=== PATIENT | male | born 1990 | race Caucasian/White ===

== ENCOUNTER 2022-01-23 15:52 | Observation (INO) ==
[2022-01-23] MEDS ORDERED: Ringers Solution, Lactated 1,000 ML IVC ONE ×2 (16:15→18:06)
[2022-01-23 16:23] LABS: Basophils # 0.1 K/mcL (0.0-0.2); Basophils % 0.4 %; Eosinophils # 0.2 K/mcL (0.0-0.6); Eosinophils % 1.5 %; Hematocrit 44.4 % (37.5-50.1); Hemoglobin 15.1 g/dL (12.9-16.9); Immature Granulocytes % 0.8 % (0-4); Lymphocytes # 3.9 K/mcL (0.6-4.6); Mean Corpuscular Hemoglobin 30.8 pg (28.0-33.3); Mean Corpuscular Volume 90.6 fL (83.0-100.0); Monocytes # 0.9 K/mcL (0.0-1.3); Monocytes % 5.5 %; Neutrophils # 10.4 K/mcL (1.6-8.9); Platelet Count 256 K/mcL (140-400); Red Cell Distribution Width 12.8 % (11.5-14.5); Segmented Neutrophils % 66.8 %; White Blood Count 15.6 K/mcL (4.3-11.1)
[2022-01-23 16:50] LABS: Alanine Aminotransferase 33 Units/L (7-52); Albumin 4.9 g/dL (3.5-5.7); Alkaline Phosphatase 54 Units/L (34-104); Aspartate Amino Transferase 21 Units/L (13-39); BUN/Creatinine Ratio 8 (6-26); Bilirubin,Direct 0.1 mg/dL (0.0-0.2); Bilirubin,Indirect 0.9 mg/dL (0.0-1.0); Blood Urea Nitrogen 16 mg/dL (6-20); Calcium 9.7 mg/dL (8.6-10.3); Carbon Dioxide 24 mEq/L (23-29); Chloride 103 mEq/L (98-107); Globulin 2.4 g/dL (2.4-3.5); Glucose 132 mg/dL (70-105); Lipase 9 Units/L (11-82); Osmolality,Calculated 291 (280-300); Potassium 3.6 mEq/L (3.5-5.1); Sodium 139 mEq/L (136-145); Total Protein 7.3 g/dL (6.4-8.9); Troponin I < 0.03 ng/mL (< 0.04); eGFR For African Americans 49 (> 60); eGFR For Non-African Americans 41 (> 60)
[2022-01-23 19:55] LABS: Bacteria,Urine Few per hpf (None-Few); Bilirubin,Urine Negative (Negative); Blood,Urine Negative (Negative); Clarity,Urine Clear (Clear); Color,Urine Yellow (Yellow); Glucose,Urine (UA) Normal (Normal); Hyaline Casts,Urine Many per lpf (None Seen); Ketones,Urine Negative (Negative); Leukocyte Esterase,Urine Trace (Negative); Mucus,Urine Moderate per lpf (None-Few); Nitrite,Urine Negative (Negative); Protein,Urine 50 mg/dL (Neg-Trace); RBC,Urine 0-3 per hpf (0-3); Specific Gravity,Urine 1.029 (1.010-1.025)
[2022-01-23] MEDS ORDERED: Naloxone 0.4 MG/ML INJ IVP PRN (19:56)
[2022-01-23] MEDS ORDERED: Acetaminophen 325 MG TABLET PO PRN (19:56)
[2022-01-23] MEDS ORDERED: Perflutren Lipid Microsphere 1.3 ML in 0.9 % Sodium Chloride 8.7 ML IVP PRN (20:02)
[2022-01-23] MEDS ORDERED: Nicotine 7 MG PATCH.TD24 TD PRN (21:14)
[2022-01-23] MEDS ORDERED: Nicotine 14 MG PATCH.TD24 TD SCH (22:06)
[2022-01-24 00:12] LABS: Amphetamine Screen,Urine Negative ng/mL (Cutoff=1000); Barbiturate Screen,Urine Negative ng/mL (Cutoff=200); Benzodiazepines Screen,Urine Negative ng/mL (Cutoff=200); Cannabinoid Screen,Urine Negative ng/mL (Cutoff = 50); Cocaine Screen,Urine Negative ng/mL (Cutoff= 300); Opiate Screen,Urine Negative ng/mL (Cutoff=300); Phencyclidine Screen,Urine Negative ng/mL (Cutoff=25)
[2022-01-24 00:37] LABS: Magnesium 1.9 mg/dL (1.6-2.6); Phosphorous 4.7 mg/dL (2.7-4.5)
[2022-01-24 00:58] LABS: Thyroid Stimulating Hormone 0.522 mcIU/mL (0.340-5.600)
[2022-01-24 05:53] LABS: Hematocrit 42.1 % (37.5-50.1); Hemoglobin 14.2 g/dL (12.9-16.9); Mean Corpuscular HGB Conc 33.7 g/dL (31.6-35.5); Mean Corpuscular Hemoglobin 30.7 pg (28.0-33.3); Mean Corpuscular Volume 90.9 fL (83.0-100.0); Mean Platelet Volume 11.2 fL (9.4-12.4); Platelet Count 245 K/mcL (140-400); Red Blood Count 4.63 M/mcL (4.19-5.50); Red Cell Distribution Width 12.9 % (11.5-14.5); White Blood Count 12.9 K/mcL (4.3-11.1)
[2022-01-24 06:09] LABS: Prothrombin Time 11.4 Seconds (9.4-12.1)
[2022-01-24 06:20] LABS: BUN/Creatinine Ratio 14 (6-26); Blood Urea Nitrogen 12 mg/dL (6-20); Calcium 9.3 mg/dL (8.6-10.3); Carbon Dioxide 26 mEq/L (23-29); Chloride 107 mEq/L (98-107); Glucose 92 mg/dL (70-105); Osmolality,Calculated 291 (280-300); Potassium 3.5 mEq/L (3.5-5.1); Sodium 141 mEq/L (136-145); eGFR For African Americans > 60 (> 60); eGFR For Non-African Americans > 60 (> 60)
[2022-01-24] MEDS: *HR* Heparin 5,000 UNIT/ML VIAL SQ SCH ×2 (08:38→12:58)
[2022-01-24] MEDS: 0.9 % Sodium Chloride 1,000 ML IVC SCH ×2 (08:38→11:30)
[2022-01-24 10:55] VITALS: O2SAT 99
[2022-01-24] MEDS ORDERED: Gabapentin 300 MG CAPSULE PO PRN (13:13)
[2022-01-24 15:22] VITALS: BP 128/75; PULSE 69; TEMP 97.8
== END 2022-01-24 17:50 | disposition left against medical advice (07) ==
LOC: EMEROOARM 15:52 → 3BNU 15:52
PROVIDERS: ADMIT Internal Medicine; ATTEND Internal Medicine